=== PATIENT | female | born 1935 | race Caucasian/White ===

== ENCOUNTER 2019-05-23 12:30 | Outpatient (CLI) | payer MEDICARE, OTHER ==
--- NOTE | 2019-05-24 08:21 | XRAY Report ---
Reason: L SHOULDER PAIN AFTER FALL Procedure Date: 05/23/2019 Accession Number: [id number] / [id number] Procedure: XR - Shoulder 3 View LT CPT Code: Final Report FULL RESULT: EXAM: LEFT SHOULDER RADIOGRAPHY, 3 VIEWS EXAM DATE: 05/23/2019 12:44 PM. CLINICAL HISTORY: 83-year-old female with persistent left shoulder pain post ground-level fall 10 days ago. COMPARISON: None. TECHNIQUE: AP, Grashey and Y views. FINDINGS: Bones: Mild to moderate degenerative changes in the proximal humerus, age appropriate. No fracture or bone lesion. Joints: Normal-appearing glenohumeral joint. Moderate to severe narrowing left AC joint. Soft tissues: The visualized hemithorax is unremarkable. No soft tissue swelling. Other: Visualized upper chest unremarkable. IMPRESSION: No acute process or posttraumatic abnormality. Moderate to severe joint space narrowing left AC joint. Glenohumeral joint unremarkable. RADIA
== END 2019-05-23 12:31 | disposition home or self-care (01) ==
LOC: DI 12:30
PROVIDERS: ATTEND Physician Assistant
DX: M19.012 Primary osteoarthritis, left shoulder (principal)

== ENCOUNTER 2020-11-13 08:00 | Outpatient (CLI) | payer MEDICARE, OTHER | END 2020-11-13 23:59 | disposition home or self-care (01) | LOC: LAB.N 08:00 | PROVIDERS: ATTEND Emergency Medicine | DX: Z91.81 History of falling (principal) | CPT/HCPCS: 82962 ==

== ENCOUNTER 2021-11-08 08:00 | Outpatient (CLI) | payer MEDICARE, OTHER ==
[2021-11-08 11:29] LABS: BASOPHILS # (AUTO) 0.1 10^3/uL (0.0-0.1); BASOPHILS % (AUTO) 0.8 %; EOSINOPHILS # (AUTO) 0.1 10^3/uL (0.0-0.7); EOSINOPHILS % (AUTO) 0.7 %; HCT - HEMATOCRIT 40.9 % (37.0-47.0); HGB - HEMOGLOBIN 13.6 g/dL (12.0-16.0); LYMPHOCYTES # (AUTO) 1.4 10^3/uL (1.5-3.5); LYMPHOCYTES % (AUTO) 14.8 %; MEAN CORPUSCULAR HEMOGLOBIN 31.2 pg (27.0-31.0); MEAN CORPUSCULAR HGB CONC 33.3 g/dL (32.0-36.0); MEAN CORPUSCULAR VOLUME 93.8 fL (81.0-99.0); MEAN PLATELET VOLUME 9.1 fL (7.9-10.8); MONOCYTES # (AUTO) 1.2 10^3/uL (0.0-1.0); MONOCYTES % (AUTO) 13.3 %; NEUTROPHILS # (AUTO) 6.4 10^3/uL (1.5-6.6); NEUTROPHILS % (AUTO) 70.1 %; PLT - PLATELET COUNT 258 10^3/uL (130-450); RED BLOOD COUNT 4.36 10^6/uL (4.20-5.40); RED CELL DISTRIBUTION WIDTH 13.2 % (12.0-15.0); WHITE BLOOD COUNT 9.2 x10^3/uL (4.8-10.8)
[2021-11-08 11:45] LABS: ALBUMIN 4.7 g/dL (3.2-5.5); BILIRUBIN,TOTAL 1.5 mg/dL (0.2-1.0); CREATININE 0.6 mg/dL (0.4-1.0); POTASSIUM 4.2 mmol/L (3.5-5.0)
== END 2021-11-08 23:59 | disposition home or self-care (01) ==
LOC: LAB.N 08:00
PROVIDERS: ATTEND Physician Assistant Medical
DX: R53.81 Other malaise (principal); R53.83 Other fatigue
CPT/HCPCS: 36415; 80053; 85025; 87086

== ENCOUNTER 2021-11-25 11:21 | Outpatient (CLI) | payer MEDICARE, OTHER | END 2021-11-25 11:22 | disposition EMS.NT | LOC: EMS 11:21 | DX: R53.1 Weakness (principal) ==

== ENCOUNTER 2022-01-04 08:00 | Outpatient (CLI) | payer MEDICARE, OTHER | END 2022-01-04 23:59 | disposition home or self-care (01) | LOC: LAB.N 08:00 | PROVIDERS: ATTEND Registered Nurse | DX: R82.79 Other abnormal findings on microbiological examination of urine (principal); R31.9 Hematuria, unspecified | CPT/HCPCS: 87086 ==

== ENCOUNTER 2022-01-04 08:00 | Outpatient (CLI) | payer MEDICARE, OTHER ==
--- NOTE | 2022-01-04 10:31 | XRAY Report ---
PROCEDURE: Chest 2 View X-Ray INDICATIONS: SOB TECHNIQUE: 2 view(s) of the chest. COMPARISON: None. FINDINGS: Surgical changes and devices: None. Lungs and pleura: No pleural effusions or pneumothorax. Lungs are clear. Mediastinum: Mediastinal contours are normal. Heart size is normal. Bones and chest wall: No suspicious bony abnormalities. Soft tissues appear unremarkable. IMPRESSION: No acute process. Reviewed by: Ronak Hayward MD on 01/04/2022 10:30 AM PDT Approved by: Ronak Hayward MD on 01/04/2022 10:30 AM PDT Station ID: [id number]
== END 2022-01-04 23:59 | disposition home or self-care (01) ==
LOC: DI.N 08:00
PROVIDERS: ATTEND Registered Nurse
DX: R06.09 Other forms of dyspnea (principal); R53.81 Other malaise; R53.83 Other fatigue; R06.2 Wheezing

== ENCOUNTER 2022-10-12 11:13 | Outpatient (CLI) | payer MEDICARE, OTHER | END 2022-10-12 11:14 | disposition short-term general hospital (02) | LOC: EMS 11:13 | DX: R41.0 Disorientation, unspecified (principal); R46.89 Other symptoms and signs involving appearance and behavior | CPT/HCPCS: A0425; A0429 ==

== ENCOUNTER 2022-11-05 10:07 | Outpatient (CLI) | payer MEDICARE, OTHER | END 2022-11-05 23:59 | disposition critical access hospital (66) | LOC: EMS 10:07 | DX: R53.1 Weakness (principal); R53.81 Other malaise | CPT/HCPCS: A0425; A0429 ==

== ENCOUNTER 2022-11-05 10:27 | Emergency (ER) | payer MEDICARE, OTHER ==
[2022-11-05] MEDS ORDERED: SODIUM CHLORIDE 0.9% 1,000 ML IV STA (11:55)
--- NOTE | 2022-11-05 11:57 | ED Physician Documentation ---
History of Present Illness - Stated complaint Stated Complaint: GENERALIZED WEAKNESS - Chief complaint Chief Complaint: General - History obtained from History obtained from: Patient, Family - History of Present Illness Timing: How many days ago (3) - Additonal information Additional information: 87 y/o female with history of advanced age on no medications complains today of weakness. She feels she is able to get out of bed but feels weak. She is accompanied by her sister today and denies other medical problems or symptoms. She does not recall entirely her visit to [facility] 3 weeks ago. She was confused then and was taken by ambulance to [facility] when both [place] and [place] were without a scanner. She was scanned on that visit. On that visit she had a UTI. Has no symptoms now. She does not have a prior diagnosis of dementia. Today she appears confused. Review of Systems Constitutional: denies: Fever, Chills, Myalgias Eyes: denies: Decreased vision Ears: denies: Ear pain Nose: denies: Rhinorrhea / runny nose, Congestion Throat: denies: Oral lesions / sores, Sore throat Cardiac: denies: Chest pain / pressure, Palpitations Respiratory: denies: Dyspnea, Cough GI: denies: Abdominal Pain, Nausea, Vomiting, Constipation, Diarrhea : reports: Frequency. denies: Dysuria Skin: denies: Rash Musculoskeletal: denies: Neck pain, Back pain, Extremity pain Neurologic: reports: Generalized weakness. denies: Focal weakness, Numbness PD PAST MEDICAL HISTORY - Allergies Allergies/Adverse Reactions: Allergies Allergy/AdvReac Type Severity Reaction Status Date / Time No Known Drug Allergies Allergy Verified 11/05/22 10:33 PD ED PE NORMAL - Vitals Vital signs reviewed: Yes (hypertensive ) - General General: No acute distress, Well developed/nourished, Other (appears confused.) - HEENT HEENT: Atraumatic, PERRL, EOMI - Neck Neck: Supple, no meningeal sign, No bony TTP - Cardiac Cardiac: RRR, No murmur - Respiratory Respiratory: No respiratory distress, Clear bilaterally - Abdomen Abdomen: Normal bowel sounds, Soft, Non tender, Non distended, No organomegaly - Back Back: No CVA TTP, No spinal TTP - Derm Derm: Normal color, Warm and dry, No rash, Other (skin tents easily ) - Extremities Extremities: No deformity, No edema, No calf tenderness / cord - Neuro Neuro: packer sausage and wiener 2-12 intact, No motor deficit, No sensory deficit, Normal speech Eye Opening: Spontaneous Motor: Obeys Commands Verbal: Confused GCS Score: 14 - Psych Psych: Normal mood, Normal affect Results - Vitals Vitals: Vital Signs - 24 hr 11/05/22 11/05/22 11/05/22 10:33 10:36 12:42 Temperature 36.4 C L Heart Rate 70 62 58 L Respiratory 20 20 15 Rate Blood Pressure 184/76 H 149/78 H 155/56 H O2 Saturation 98 98 100 11/05/22 14:23 Temperature Heart Rate 68 Respiratory 15 Rate Blood Pressure 161/78 H O2 Saturation 98 Oxygen O2 Source Room air - Labs Labs: Laboratory Tests 11/05/22 11/05/22 11/05/22 12:07 12:20 12:20 WBC 6.8 RBC 4.23 Hgb 12.8 Hct 38.7 MCV 91.5 MCH 30.3 MCHC 33.1 RDW 13.3 Plt Count 210 MPV 8.8 Neut # (Auto) 4.4 Lymph # (Auto) 1.3 L [place] # (Auto) 0.9 Eos # (Auto) 0.1 Baso # (Auto) 0.1 Absolute Nucleated RBC 0.00 Nucleated RBC % 0.0 Sodium 138 Potassium 3.8 Chloride 105 Carbon Dioxide 26 Anion Gap 7.0 BUN 16 Creatinine 0.7 Estimated GFR (MDRD) 79 L Glucose 106 H Calcium 9.0 Total Bilirubin 1.9 H AST 17 ALT 13 Alkaline Phosphatase 69 Total Protein 6.8 Albumin 3.9 Globulin 2.9 Albumin/Globulin Ratio 1.3 Lipase 27 Urine Color LIGHT YELLOW Urine Clarity CLEAR Urine pH 7.5 Ur Specific [place] 1.015 Urine Protein NEGATIVE Urine Glucose (UA) NEGATIVE Urine Ketones NEGATIVE Urine Occult Blood NEGATIVE Urine Nitrite NEGATIVE Urine Bilirubin NEGATIVE Urine Urobilinogen 0.2 (NORMAL) Ur Leukocyte Esterase NEGATIVE Ur Microscopic Review NOT INDICATED Urine Culture Comments NOT INDICATED Procedures - IVC sono (time) 1150 Bedside IVC sono: IVC measures (cm) (1.12), IVC collapsed c insp (cm) (complete), Dehydration (est 1 liter deficit) PD Medical Decision Making - ED course Complexity details: reviewed old records, reviewed results, re-evaluated patient, considered differential, d/w patient, d/w family Reviewed Lab Results: We evaluated a complete blood count showing a normal white blood cell count normal hemoglobin hematocrit and platelets chemistries showed normal electrolytes normal kidney and liver function bilirubin elevated at 1.9 was the only abnormality her prior from more than a year ago was elevated at 1.5. Urinalysis is entirely unremarkable.My interpretation of these benign appearing results are likely the patient has a benign condition. ED course: 87-year-old Raffi Sainz has presented to the emergency department today she appears a bit confused and she is complaining of generalized weakness. Laboratory and ancillary examination has few findings and with POCUS we were able to demonstrate a volume deficit. This correlated with the patient's skin tenting and parched mucous membranes. She was administered a liter of saline. She does appear to have advancing dementia and she is living alone I have asked social work to evaluate the patient. Departure - Departure Disposition: 01 Home, Self Care Clinical Impression: Dehydration Condition: Stable Instructions: ED Dehydration Follow-Up: Palomo Muhammad MD [Provider Admit Priv/Credential] - Comments: Aminata, today we did not find any abnormalities on her general work-up with the exception of some mild dehydration. We have given you fluids to replace the lost volume. The expectation is that with continued hydration you would feel normal. Discharge Date/Time: 11/05/22 14:23
[2022-11-05 12:29] LABS: BASOPHILS # (AUTO) 0.1 10^3/uL (0.0-0.1); EOSINOPHILS # (AUTO) 0.1 10^3/uL (0.0-0.7); EOSINOPHILS % (AUTO) 0.9 %; HCT - HEMATOCRIT 38.7 % (37.0-47.0); HGB - HEMOGLOBIN 12.8 g/dL (12.0-16.0); LYMPHOCYTES # (AUTO) 1.3 10^3/uL (1.5-3.5); LYMPHOCYTES % (AUTO) 19.6 %; MEAN CORPUSCULAR HEMOGLOBIN 30.3 pg (27.0-31.0); MEAN CORPUSCULAR HGB CONC 33.1 g/dL (32.0-36.0); MEAN CORPUSCULAR VOLUME 91.5 fL (81.0-99.0); MEAN PLATELET VOLUME 8.8 fL (7.9-10.8); MONOCYTES # (AUTO) 0.9 10^3/uL (0.0-1.0); MONOCYTES % (AUTO) 13.7 %; NEUTROPHILS # (AUTO) 4.4 10^3/uL (1.5-6.6); NEUTROPHILS % (AUTO) 64.7 %; PLT - PLATELET COUNT 210 10^3/uL (130-450); RED BLOOD COUNT 4.23 10^6/uL (4.20-5.40); RED CELL DISTRIBUTION WIDTH 13.3 % (12.0-15.0); WHITE BLOOD COUNT 6.8 x10^3/uL (4.8-10.8)
[2022-11-05 12:34] LABS: BILIRUBIN,URINE NEGATIVE (NEGATIVE); GLUCOSE, URINE (UA) NEGATIVE (NEGATIVE); KETONES,URINE (UA) NEGATIVE (NEGATIVE); LEUKOCYTE ESTERASE, URINE NEGATIVE (NEGATIVE); NITRITE,URINE NEGATIVE (NEGATIVE); OCCULT BLOOD,URINE NEGATIVE (NEGATIVE); PH,URINE 7.5 PH (5.0-7.5); PROTEIN,URINE NEGATIVE (NEGATIVE); UROBILINOGEN,URINE 0.2 (NORMAL) E.U./dL (NORMAL)
[2022-11-05 12:36] LABS: CLARITY,URINE CLEAR (CLEAR)
[2022-11-05 12:43] LABS: ALBUMIN 3.9 g/dL (3.2-5.5); ALBUMIN/GLOBULIN RATIO 1.3 (1.0-2.2); BILIRUBIN,TOTAL 1.9 mg/dL (0.2-1.0); CREATININE 0.7 mg/dL (0.4-1.0); POTASSIUM 3.8 mmol/L (3.5-5.0); TOTAL PROTEIN 6.8 g/dL (6.7-8.2)
[2022-11-05 14:26] VITALS: BP 161/78
== END 2022-11-05 14:23 | disposition home or self-care (01) ==
LOC: ED 10:27
DX: E86.0 Dehydration (principal)
CPT/HCPCS: 36415; 80053; 81001; 81003; 83690; 85025; 87086; 96360; 99283

== ENCOUNTER 2022-11-23 09:15 | Emergency (ER) | payer MEDICARE, OTHER ==
[2022-11-23] MEDS ORDERED: ONDANSETRON 4 MG/2 ML VIAL IVP STA (09:55)
[2022-11-23 10:07] LABS: BASOPHILS # (AUTO) 0.1 10^3/uL (0.0-0.1); BASOPHILS % (AUTO) 1.1 %; EOSINOPHILS # (AUTO) 0.1 10^3/uL (0.0-0.7); EOSINOPHILS % (AUTO) 0.9 %; HCT - HEMATOCRIT 38.2 % (37.0-47.0); HGB - HEMOGLOBIN 12.9 g/dL (12.0-16.0); LYMPHOCYTES % (AUTO) 12.4 %; MEAN CORPUSCULAR HEMOGLOBIN 30.9 pg (27.0-31.0); MEAN CORPUSCULAR HGB CONC 33.8 g/dL (32.0-36.0); MEAN CORPUSCULAR VOLUME 91.6 fL (81.0-99.0); MEAN PLATELET VOLUME 9.2 fL (7.9-10.8); MONOCYTES % (AUTO) 12.1 %; NEUTROPHILS # (AUTO) 5.8 10^3/uL (1.5-6.6); NEUTROPHILS % (AUTO) 73.4 %; PLT - PLATELET COUNT 233 10^3/uL (130-450); RED BLOOD COUNT 4.17 10^6/uL (4.20-5.40); RED CELL DISTRIBUTION WIDTH 13.6 % (12.0-15.0); WHITE BLOOD COUNT 7.8 x10^3/uL (4.8-10.8)
--- NOTE | 2022-11-23 10:13 | ED Physician Documentation ---
History of Present Illness - Stated complaint Stated Complaint: GEN WEAKNESS - Chief complaint Chief Complaint: General - History obtained from History obtained from: Patient - Additonal information Additional information: 87-year-old female with no reported past medical history presents by private vehicle for "I just do not feel good". Patient denying any specific symptoms at this time. On review of systems patient was asked if she had nausea or vomiting and she stated she "might have the beginning of nausea". Denies pain. Review of Systems Constitutional: reports: Other (malaise). denies: Fever, Chills Ears: denies: Loss of hearing Nose: denies: Rhinorrhea / runny nose, Foreign Body Cardiac: denies: Chest pain / pressure, Palpitations, Calf pain GI: reports: Nausea. denies: Abdominal Pain, Abdominal Swelling, Vomiting, Constipation, Diarrhea : denies: Dysuria, Frequency, Hesitancy Musculoskeletal: denies: Neck pain, Back pain Neurologic: denies: Generalized weakness, Focal weakness, Numbness, Near syncope, Syncope, Confused PD PAST MEDICAL HISTORY - Past Medical History Past Medical History: No - Past Surgical History Past Surgical History: Yes General: Appendectomy - Present Medications Home Medications: Ambulatory Orders Medication Instructions Recorded Confirmed No Known Home Medications 11/23/22 11/23/22 - Allergies Allergies/Adverse Reactions: Allergies Allergy/AdvReac Type Severity Reaction Status Date / Time No Known Drug Allergies Allergy Verified 11/23/22 09:47 - Social History Does the pt smoke?: No Smoking Status: Never smoker PD ED PE NORMAL - Vitals Vital signs reviewed: Yes - General General: Alert and oriented X 3, No acute distress, Well developed/nourished, Other (appears stated age) - HEENT HEENT: Atraumatic - Cardiac Cardiac: RRR, Strong equal pulses - Respiratory Respiratory: No respiratory distress, Clear bilaterally - Abdomen Abdomen: Soft, Non tender, Non distended - Derm Derm: Normal color, Warm and dry, No rash - Extremities Extremities: No deformity, No tenderness to palpate, Normal ROM s pain, No edema, No calf tenderness / cord, Other (gait normal) - Neuro Neuro: Alert and oriented X 3, pie maker 2-12 intact, No motor deficit, Normal speech Results - Vitals Vitals: Vital Signs - 24 hr 07/26/23 07/26/23 07/26/23 09:41 10:03 12:00 Temperature 36.7 C Heart Rate 88 70 76 Respiratory 14 25 H 17 Rate Blood Pressure 112/69 118/67 129/73 O2 Saturation 97 97 100 Oxygen O2 Source Room air - EKG (time done) 0956 EKG releavant findings:: EKG personally interpreted by author of this note. Relevant findings are: Rate: Rate (enter#) (73) Rhythm: NSR [place]: Normal Intervals: Normal RI QRS: Normal Ischemia: Normal ST segments - Labs Labs: Laboratory Tests 11/23/22 11/23/22 11/23/22 10:00 10:00 10:15 WBC 7.8 RBC 4.17 L Hgb 12.9 Hct 38.2 MCV 91.6 MCH 30.9 MCHC 33.8 RDW 13.6 Plt Count 233 MPV 9.2 Neut # (Auto) 5.8 Lymph # (Auto) 1.0 L [place] # (Auto) 1.0 Eos # (Auto) 0.1 Baso # (Auto) 0.1 Absolute Nucleated RBC 0.00 Nucleated RBC % 0.0 Sodium 136 Potassium 4.0 Chloride 104 Carbon Dioxide 28 Anion Gap 4.0 L BUN 17 Creatinine 0.7 Estimated GFR (MDRD) 79 L Glucose 106 H Calcium 9.6 Total Bilirubin 1.5 H AST 12 ALT 10 Alkaline Phosphatase 63 Total Protein 6.1 L Albumin 4.1 Globulin 2.0 L Albumin/Globulin Ratio 2.1 Lipase 20 Urine Color Urine Clarity Urine pH Ur Specific [place] Urine Protein Urine Glucose (UA) Urine Ketones Urine Occult Blood Urine Nitrite Urine Bilirubin Urine Urobilinogen Ur Leukocyte Esterase Urine RBC Urine WBC Ur Squamous Epith Cells Urine Bacteria Ur Microscopic Review Urine Culture Comments Nasal Adenovirus (PCR) NOT DETECTED Nasal B. parapertussis DNA (PCR) NOT DETECTED Nasal Coronavir 229E PCR NOT DETECTED Nasal Coronavir HKU1 PCR NOT DETECTED Nasal Coronavir NL63 PCR NOT DETECTED Nasal Coronavir OC43 PCR NOT DETECTED Nasal Enterovir/Rhinovir PCR NOT DETECTED Nasal Influenza B PCR NOT DETECTED Nasal Influenza A PCR NOT DETECTED Nasal Parainfluen 1 PCR NOT DETECTED Nasal Parainfluen 2 PCR NOT DETECTED Nasal Parainfluen 3 PCR NOT DETECTED Nasal Parainfluen 4 PCR NOT DETECTED Nasal RSV (PCR) NOT DETECTED Nasal B.pertussis DNA PCR NOT DETECTED Nasal C.pneumoniae (PCR) NOT DETECTED Kevin Human Metapneumo PCR NOT DETECTED Nasal M.pneumoniae (PCR) NOT DETECTED Nasal SARS-CoV-2 (PCR) NOT DETECTED 11/23/22 11:00 WBC RBC Hgb Hct MCV MCH MCHC RDW Plt Count MPV Neut # (Auto) Lymph # (Auto) [place] # (Auto) Eos # (Auto) Baso # (Auto) Absolute Nucleated RBC Nucleated RBC % Sodium Potassium Chloride Carbon Dioxide Anion Gap BUN Creatinine Estimated GFR (MDRD) Glucose Calcium Total Bilirubin AST ALT Alkaline Phosphatase Total Protein Albumin Globulin Albumin/Globulin Ratio Lipase Urine Color YELLOW Urine Clarity CLEAR Urine pH 5.5 Ur Specific [place] 1.025 Urine Protein NEGATIVE Urine Glucose (UA) NEGATIVE Urine Ketones NEGATIVE Urine Occult Blood TRACE-INTA Urine Nitrite NEGATIVE Urine Bilirubin NEGATIVE Urine Urobilinogen 1 (NORMAL) Ur Leukocyte Esterase TRACE H Urine RBC None Seen Urine WBC 4-5 Ur Squamous Epith Cells FEW Squamous Urine Bacteria Few Ur Microscopic Review INDICATED Urine Culture Comments INDICATED Nasal Adenovirus (PCR) Nasal B. parapertussis DNA (PCR) Nasal Coronavir 229E PCR Nasal Coronavir HKU1 PCR Nasal Coronavir NL63 PCR Nasal Coronavir OC43 PCR Nasal Enterovir/Rhinovir PCR Nasal Influenza B PCR Nasal Influenza A PCR Nasal Parainfluen 1 PCR Nasal Parainfluen 2 PCR Nasal Parainfluen 3 PCR Nasal Parainfluen 4 PCR Nasal RSV (PCR) Nasal B.pertussis DNA PCR Nasal C.pneumoniae (PCR) Kevin Human Metapneumo PCR Nasal M.pneumoniae (PCR) Nasal SARS-CoV-2 (PCR) PD Medical Decision Making - ED course Complexity details: reviewed results ED course: Patient presenting for general unwell feeling without specific complaint. Physical exam is unremarkable. Patient AOx3 and ambulatory to exam room. Labs/imaging unremarkable. Question very mild UTI. Patient informed of all lab results, she states that she feels well and wants to go home. She was informed of her urinalysis, she states that she does not want to be on antibiotics at this time and will wait to see if her urine culture shows anything before she starts antibiotics. EKG sinus rhythm, respiratory panel negative. Patient counseled to return in 48 hours if she does not notice improvement or if her symptoms have changed. Departure - Departure Disposition: 01 Home, Self Care Clinical Impression: Malaise Condition: Stable Instructions: ED Viral Syndrome Forms: PCP List Discharge Date/Time: 11/23/22 13:02
--- NOTE | 2022-11-23 10:21 | XRAY Report ---
PROCEDURE: Chest 1 View X-Ray INDICATIONS: gen weakness TECHNIQUE: One view of the chest was acquired. COMPARISON: Chest x-ray, 01/04/2010 22. FINDINGS: Surgical changes and devices: None. Lungs and pleura: Hyperinflation consistent with COPD. No pleural effusions or pneumothorax. Lungs are clear. Mediastinum: Mediastinal contours appear normal. Heart size is normal. Bones and chest wall: No suspicious bony lesions. Overlying soft tissues appear unremarkable. IMPRESSION: 1. No acute cardiopulmonary process. 2. COPD. Reviewed by: Galilea Estrada MD on 11/23/2022 10:19 AM PDT Approved by: Galilea Estrada MD on 11/23/2022 10:19 AM PDT Station ID: [id number]
[2022-11-23 10:31] LABS: ALBUMIN 4.1 g/dL (3.2-5.5); ALBUMIN/GLOBULIN RATIO 2.1 (1.0-2.2); BILIRUBIN,TOTAL 1.5 mg/dL (0.2-1.0); CALCIUM 9.6 mg/dL (8.5-10.3); CREATININE 0.7 mg/dL (0.6-1.3); TOTAL PROTEIN 6.1 g/dL (6.4-8.9)
[2022-11-23 11:11] LABS: BILIRUBIN,URINE NEGATIVE (NEGATIVE); GLUCOSE, URINE (UA) NEGATIVE (NEGATIVE); KETONES,URINE (UA) NEGATIVE (NEGATIVE); LEUKOCYTE ESTERASE, URINE TRACE (NEGATIVE); NITRITE,URINE NEGATIVE (NEGATIVE); OCCULT BLOOD,URINE TRACE-INTA (NEGATIVE); PH,URINE 5.5 PH (5.0-7.5); PROTEIN,URINE NEGATIVE (NEGATIVE); UROBILINOGEN,URINE 1 (NORMAL) E.U./dL (NORMAL)
[2022-11-23 11:12] LABS: CLARITY,URINE CLEAR (CLEAR)
[2022-11-23 11:20] LABS: BACTERIA,URINE Few /HPF (None Seen); RBC,URINE None Seen /HPF (0-5); SQUAMOUS EPITHELIAL CELL,UR FEW Squamous (<= Few)
[2022-11-23 11:23] LABS: B. PARAPERTUSSIS- RESP PCR PAN NOT DETECTED; B. PERTUSSIS- RESP PCR PANEL NOT DETECTED; C. PNEUMONIAE- RESP PCR PANEL NOT DETECTED; CORONAVIRUS 229E-RESP PCR NOT DETECTED; CORONAVIRUS HKU1-RESP PCR NOT DETECTED; CORONAVIRUS NL63-RESP PCR NOT DETECTED; CORONAVIRUS OC43-RESP PCR NOT DETECTED; HUMAN METAPNEUMOVIRUS NOT DETECTED; INFLUENZA A- RESP PCR PANEL NOT DETECTED; INFLUENZA B - RESP PCR PANEL NOT DETECTED; M. PNEUMONIAE- RESP PCR PANEL NOT DETECTED; PARAINFLUENZA VIRUS 1 NOT DETECTED; PARAINFLUENZA VIRUS 2 NOT DETECTED; PARAINFLUENZA VIRUS 3 NOT DETECTED; PARAINFLUENZA VIRUS 4 NOT DETECTED; RHINOVIRUS/ENTEROVIRUS NOT DETECTED; RSV- RESP PCR PANEL NOT DETECTED; SARS-CoV-2 -RESP PCR PANEL NOT DETECTED
[2022-11-23 12:21] VITALS: BP 129/73
== END 2022-11-23 13:02 | disposition home or self-care (01) ==
LOC: ED 09:15
DX: R53.81 Other malaise (principal); Z20.822 Contact with and (suspected) exposure to COVID-19
CPT/HCPCS: 36415; 80053; 81001; 81003; 83690; 85025; 87086; 87633; 93005; 96374; 99283

== ENCOUNTER 2022-11-29 07:15 | Emergency (ER) | payer MEDICARE, OTHER ==
[2022-11-29] MEDS ORDERED: SODIUM CHLORIDE 0.9% 1,000 ML IV STA (07:56)
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
[2022-11-29 08:10] LABS: BASOPHILS # (AUTO) 0.1 10^3/uL (0.0-0.1); BASOPHILS % (AUTO) 1.1 %; EOSINOPHILS # (AUTO) 0.1 10^3/uL (0.0-0.7); EOSINOPHILS % (AUTO) 1.3 %; HCT - HEMATOCRIT 39.1 % (37.0-47.0); HGB - HEMOGLOBIN 13.1 g/dL (12.0-16.0); LYMPHOCYTES % (AUTO) 16.3 %; MEAN CORPUSCULAR HEMOGLOBIN 30.5 pg (27.0-31.0); MEAN CORPUSCULAR HGB CONC 33.5 g/dL (32.0-36.0); MEAN CORPUSCULAR VOLUME 91.1 fL (81.0-99.0); MEAN PLATELET VOLUME 8.7 fL (7.9-10.8); MONOCYTES # (AUTO) 0.8 10^3/uL (0.0-1.0); NEUTROPHILS # (AUTO) 4.3 10^3/uL (1.5-6.6); NEUTROPHILS % (AUTO) 68.1 %; PLT - PLATELET COUNT 213 10^3/uL (130-450); RED BLOOD COUNT 4.29 10^6/uL (4.20-5.40); RED CELL DISTRIBUTION WIDTH 13.5 % (12.0-15.0); WHITE BLOOD COUNT 6.3 x10^3/uL (4.8-10.8)
[2022-11-29 08:21] LABS: ALBUMIN 4.1 g/dL (3.2-5.5); ALBUMIN/GLOBULIN RATIO 1.9 (1.0-2.2); BILIRUBIN,TOTAL 1.4 mg/dL (0.2-1.0); CALCIUM 9.4 mg/dL (8.5-10.3); CREATININE 0.7 mg/dL (0.6-1.3); TOTAL PROTEIN 6.3 g/dL (6.4-8.9)
--- NOTE | 2022-11-29 09:29 | CT Report ---
PROCEDURE: HEAD WO INDICATIONS: confusion TECHNIQUE: Noncontrast 4.5 mm thick angled axial sections acquired from the foramen magnum to the vertex. For r adiation dose reduction, the following was used: automated exposure control, adjustment of mA and/or kV according to patient size. COMPARISON: None FINDINGS: Image quality: Excellent. CSF spaces: Basal cisterns are patent. No extra-axial fluid collections. The ventricles are symmet mynor in size and shape. Brain: No intracranial bleeds or masses. There is cerebral volume loss for age, with resultant vent ricular and sulcal prominence. There are periventricular and deep white matter chronic small vessel ischemic changes. There is intracranial internal carotid artery atherosclerosis. Skull and face: Calvarium and visualized facial bones appear intact, without suspicious lesions. Sinuses: Visualized sinuses and mastoids are clear. IMPRESSION: 1. No CT evidence of acute intracranial abnormalities. 2. Significant volume loss related to patient's age. Moderate white matter chronic small vessel ische wilson changes. Reviewed by: Wally Flannery MD on 11/29/2022 9:28 AM PDT Approved by: Wally Flannery MD on 11/29/2022 9:28 AM PDT Station ID: [id number]
[2022-11-29 09:48] LABS: BILIRUBIN,URINE NEGATIVE (NEGATIVE); GLUCOSE, URINE (UA) NEGATIVE (NEGATIVE); KETONES,URINE (UA) NEGATIVE (NEGATIVE); LEUKOCYTE ESTERASE, URINE NEGATIVE (NEGATIVE); NITRITE,URINE NEGATIVE (NEGATIVE); OCCULT BLOOD,URINE TRACE-LYSE (NEGATIVE); PROTEIN,URINE NEGATIVE (NEGATIVE); UROBILINOGEN,URINE 0.2 (NORMAL) E.U./dL (NORMAL)
[2022-11-29 09:50] LABS: CLARITY,URINE CLEAR (CLEAR)
[2022-11-29 12:20] VITALS: BP 157/65
== END 2022-11-29 14:03 | disposition home or self-care (01) ==
LOC: ED 07:15
DX: E86.0 Dehydration (principal); F03.A18 Unspecified dementia, mild, with other behavioral disturbance
CPT/HCPCS: 36415; 80053; 81001; 81003; 83690; 85025; 87086; 96360; 96361; 99284

== ENCOUNTER 2023-05-14 07:44 | Emergency (ER) | payer MEDICARE, OTHER ==
--- NOTE | 2023-05-14 07:52 | ED Physician Documentation ---
PD HPI Fall - Stated complaint Stated Complaint: GLF/ HEAD LAC - History obtained from History obtained from: Patient, EMS - History of Present Illness Mechanism of injury: Unknown Fall distance: Standing position Where injury occurred: Home Timing - onset: Today Injury(ies) location: Head, Neck Quality of pain: Pain Associated symptoms: LOC, AMS Symptoms improve with: Rest Worsens with: Movement, Palpation Contributing factors: No: Anticoagulated, Intoxicated Similar symptoms before: Has not had sx before Recently seen: Not recently seen - Additional information Additional information: Raffi Sainz is an 87-year-old female with dementia who is a resident of [facility]. Today she was near the nurses station and had an unwitnessed fall they did hear the fall they found the patient on the ground with her eyes rolled back and she was not responsive. She is now responsive and reports slight nausea. She does have some pain to the back of her head with a laceration and she denies any pain to her neck until her neck is palpated.The patient denies any other specific symptoms on review of systems but she is unaware of her location. Review of Systems Unable to obtain: Dementia PD PAST MEDICAL HISTORY - Past Surgical History Past Surgical History: Yes General: Appendectomy - Present Medications Home Medications: Ambulatory Orders Medication Instructions Recorded Confirmed Amox/Clav 875/125 [Augmentin] 1 each PO Q12H #20 tablet 05/14/23 - Allergies Allergies/Adverse Reactions: Allergies Allergy/AdvReac Type Severity Reaction Status Date / Time No Known Drug Allergies Allergy Verified 05/14/23 08:00 - Social History Does the pt smoke?: No Smoking Status: Never smoker PD ED PE NORMAL - Vitals Vital signs reviewed: Yes - General General: No acute distress, Well developed/nourished, Other (87 y/o female interactive and with minimal delay in exection of motor commands and no significant speech latency. wearing collar with head bandaged pleasant smile. ) - HEENT HEENT: PERRL, EOMI - Neck Neck: Supple, no meningeal sign, Other (midline diana tenderness to mid cervical spine. ) - Cardiac Cardiac: RRR, No murmur - Respiratory Respiratory: No respiratory distress, Clear bilaterally - Abdomen Abdomen: Normal bowel sounds, Soft, Non tender, Non distended, No organomegaly - Back Back: No CVA TTP, No spinal TTP - Derm Derm: Normal color, Warm and dry, No rash - Extremities Extremities: No deformity, No edema - Neuro Neuro: string studies director 2-12 intact, No motor deficit, No sensory deficit, Normal speech Eye Opening: Spontaneous Motor: Obeys Commands Verbal: Confused GCS Score: 14 - Psych Psych: Normal mood, Normal affect Results - Vitals Vitals: Vital Signs - 24 hr 05/14/23 05/14/23 05/14/23 07:53 08:25 09:33 Temperature 36.0 C L Heart Rate 63 61 61 Respiratory 20 16 16 Rate Blood Pressure 148/71 H 132/69 H 147/73 H O2 Saturation 97 98 100 Oxygen O2 Source Room air - Labs Labs: Laboratory Tests 05/14/23 09:17 Urine Color YELLOW Urine Clarity SL. CLOUDY Urine pH 7.5 Ur Specific [place] 1.015 Urine Protein NEGATIVE Urine Glucose (UA) NEGATIVE Urine Ketones NEGATIVE Urine Occult Blood NEGATIVE Urine Nitrite POSITIVE H Urine Bilirubin NEGATIVE Urine Urobilinogen 0.2 (NORMAL) Ur Leukocyte Esterase SMALL H Urine RBC 0-5 Urine WBC 6-10 H Ur Squamous Epith Cells FEW Squamous Urine Bacteria Many H Ur Microscopic Review INDICATED Urine Culture Comments INDICATED - Rads (name of study) CT head Relevant Findings:: Prelim report reviewed (Impression: No acute intracranial pathology. Small left posterior calvarial scalp contusion, without underlying fracture. Right maxillary sinusitis.), EMP independent interpretation of test, See rad report CT cervical spine Relevant Findings:: Prelim report reviewed (Impression: No acute, displaced fracture or traumatic subluxation. Right maxillary sinusitis.), EMP independent interpretation of test, See rad report Procedures - Laceration (location) scalp Length in cm: 3 Wound type: Stellate, Irregular, Into subcut fat, Clean Neurovascular status: Sensory intact, Motor intact, Vascular intact Anesthesia: Lidocaine 1% Wound preparation: Hibiclens, Irrigated copiously NS, Wound explored, To the base Skin layer closure: Marc (#3) Other: Patient tolerated well, No complications, Neurovascular intact, Tetanus UTD PD Medical Decision Making - ED course Complexity details: reviewed old records, reviewed results, re-evaluated patient, considered differential, d/w patient, d/w family ED course: 87-year-old female with a ground-level fall onto the back of her head has a occipital scalp laceration. She has advanced dementia but appears otherwise well. She is not able to provide specific details for review of systems and on her workup we note infection in both the maxillary sinus on the right side as well as urinary tract. We will provide a course of Augmentin for the patient. Departure - Departure Disposition: 01 Home, Self Care Clinical Impression: Occipital scalp laceration Qualifiers: Encounter type: initial encounter Qualified Code(s): S01.01XA - Laceration without foreign body of scalp, initial encounter Maxillary sinusitis, acute Qualifiers: Recurrence: not specified as recurrent Qualified Code(s): J01.00 - Acute maxillary sinusitis, unspecified Urinary tract infection Qualifiers: Urinary tract infection type: acute cystitis Hematuria presence: without hematuria Qualified Code(s): N30.00 - Acute cystitis without hematuria Instructions: ED Laceration Scalp Stitch Or Stap, ED Sinusitis Abx Tx, ED UTI Cystitis Female Follow-Up: Palomo Muhammad MD [Provider Admit Priv/Credential] - Prescriptions: Amox/Clav 875/125 [Augmentin] 1 each PO Q12H #20 tablet Comments: Aminata, today it looks like your fall caused a laceration to your scalp and we have stapled this. We did not find evidence of bleeding inside the skull or evidence of a fracture to the spine. We did find evidence of urinary tract infection and of sinusitis in the right maxillary sinus. These are both conditions which can cause you to be off of your ground game and can cause a fall. For this reason we are treating these infections. I have E scribed some Augmentin to the
--- NOTE | 2023-05-14 08:47 | CT Report ---
PROCEDURE: Cervical Spine WO INDICATIONS: fall scalp lac neck pain nausea TECHNIQUE: Noncontrast 3 mm thick sections acquired from the skull base to the T4 level. Sagittal and coronal r eformats were then constructed. For radiation dose reduction, the following was used: automated exp osure control, adjustment of mA and/or kV according to patient size. COMPARISON: None. FINDINGS: Image quality: Excellent. Bones: No fractures or dislocations. Visualized superior ribs are intact. Soft tissues: Prevertebral soft tissues are normal in thickness. No paravertebral hematomas. No ap ical pneumothoraces. Thyroid is enlarged. Air-fluid level in the right maxillary sinus. IMPRESSION: No acute, displaced fracture or traumatic subluxation. Right maxillary sinusitis. Reviewed by: Cristiano Regan MD on 05/14/2023 8:46 AM PST Approved by: Cristiano Regan MD on 05/14/2023 8:46 AM [facility] Station ID: [id number]
--- NOTE | 2023-05-14 08:48 | CT Report ---
PROCEDURE: Head WO INDICATIONS: fall scalp lac neck pain nausea TECHNIQUE: Noncontrast 4.5 mm thick angled axial sections acquired from the foramen magnum to the vertex. For r adiation dose reduction, the following was used: automated exposure control, adjustment of mA and/or kV according to patient size. COMPARISON: None. FINDINGS: Image quality: Excellent. CSF spaces: Basal cisterns are patent. No extra-axial fluid collections. Ventricles are normal in size and shape. Brain: No midline shift. No intracranial masses or hemorrhage. Saenz-white matter interface is norm al. Skull and face: Calvarium and visualized facial bones are intact, without suspicious lesions. Small left posterior calvarium scalp contusion. Sinuses: Air-fluid level within the right maxillary sinus. IMPRESSION: No acute intracranial pathology. Small left posterior calvarium scalp contusion, without underlying fracture. Right maxillary sinusitis. Reviewed by: Cristiano Regan MD on 05/14/2023 8:47 AM PST Approved by: Cristiano Regan MD on 05/14/2023 8:47 AM [facility] Station ID: [id number]
[2023-05-14] MEDS ORDERED: LIDOCAINE 1% 2 ML VIAL SUBQ STA (09:01)
[2023-05-14 09:23] LABS: BILIRUBIN,URINE NEGATIVE (NEGATIVE); GLUCOSE, URINE (UA) NEGATIVE (NEGATIVE); KETONES,URINE (UA) NEGATIVE (NEGATIVE); LEUKOCYTE ESTERASE, URINE SMALL (NEGATIVE); NITRITE,URINE POSITIVE (NEGATIVE); OCCULT BLOOD,URINE NEGATIVE (NEGATIVE); PH,URINE 7.5 PH (5.0-7.5); PROTEIN,URINE NEGATIVE (NEGATIVE); UROBILINOGEN,URINE 0.2 (NORMAL) E.U./dL (NORMAL)
[2023-05-14 09:25] LABS: CLARITY,URINE SL. CLOUDY (CLEAR)
[2023-05-14 09:44] LABS: BACTERIA,URINE Many /HPF (None Seen); RBC,URINE 0-5 /HPF (0-5); SQUAMOUS EPITHELIAL CELL,UR FEW Squamous (<= Few)
[2023-05-14 10:54] VITALS: BP 161/74; O2SAT 98
== END 2023-05-14 10:51 | disposition home or self-care (01) ==
LOC: EDUNIT# → ED 07:44
DX: S01.01XA Laceration without foreign body of scalp, initial encounter (principal); W18.30XA Fall on same level, unspecified, initial encounter; Y92.198 Other place in other specified residential institution as the place of occurrence of the external cause; J01.00 Acute maxillary sinusitis, unspecified; N30.00 Acute cystitis without hematuria
CPT/HCPCS: 12002; 81001; 81003; 87086; 87181; 99283; 99284

== ENCOUNTER 2023-06-25 13:12 | Outpatient (CLI) | payer MEDICARE, OTHER | END 2023-06-25 23:59 | disposition short-term general hospital (02) | LOC: EMS 13:12 | DX: M25.551 Pain in right hip (principal); M79.651 Pain in right thigh; W01.0XXA Fall on same level from slipping, tripping and stumbling without subsequent striking against object, initial encounter; Y92.098 Other place in other non-institutional residence as the place of occurrence of the external cause | CPT/HCPCS: A0425; A0429 ==

== ENCOUNTER 2023-08-10 17:27 | Outpatient (CLI) | payer MEDICARE, OTHER | END 2023-08-10 23:59 | disposition critical access hospital (66) | LOC: EMS 17:27 | DX: M25.551 Pain in right hip (principal); Z74.01 Bed confinement status; F03.90 Unspecified dementia, unspecified severity, without behavioral disturbance, psychotic disturbance, mood disturbance, and anxiety | CPT/HCPCS: A0425; A0429 ==

== ENCOUNTER 2023-08-10 17:36 | Emergency (ER) | payer MEDICARE, OTHER ==
--- NOTE | 2023-08-10 17:48 | ED Physician Documentation ---
History of Present Illness - Stated complaint Stated Complaint: RT HIP/KNEE PX - Chief complaint Chief Complaint: Ext Problem - History obtained from History obtained from: Patient - Additonal information Additional information: 87-year-old woman with dementia presents for hip and knee injuries after a fall. History is limited by dementia. She said she just tripped and fell. She is confident she did not hit her head. Initially she says she has no complaints, of note she was transported to [facility] in late June for hip injury. She has an incision over the right lateral hip which look like a hip replacement or hip surgery, but she does not recall any surgery. PD PAST MEDICAL HISTORY - Past Medical History Past Medical History: Yes Neuro: Dementia - Past Surgical History Past Surgical History: Yes General: Appendectomy Ortho: Hip replacement - Present Medications Home Medications: Ambulatory Orders Medication Instructions Recorded Confirmed Amox/Clav 875/125 [Augmentin] 1 each PO Q12H #20 tablet 05/14/23 - Allergies Allergies/Adverse Reactions: Allergies Allergy/AdvReac Type Severity Reaction Status Date / Time Penicillins Allergy Unknown Verified 08/10/23 17:45 - Social History Does the pt smoke?: No Smoking Status: Never smoker Does the pt drink ETOH?: No Does the pt have substance abuse?: No - Immunizations Immunizations are current?: Yes - POLST Patient has POLST: Yes PD ED PE NORMAL - Vitals Vital signs reviewed: Yes - General General: No acute distress, Well developed/nourished - HEENT HEENT: PERRL, EOMI - Neck Neck: Supple, no meningeal sign, No bony TTP, No JVD - Extremities Extremities: Other (Incisions over the right hip, looking like a hip surgery. She is tender over both sides of the right knee without deformity. She has pain with internal and external rotation of the right hip.) - Neuro Eye Opening: Spontaneous Motor: Obeys Commands Verbal: Confused (She is alert and oriented to person and place but not time or events.) GCS Score: 14 Results - Vitals Vitals: Vital Signs - 24 hr 08/10/23 17:40 Temperature 37.3 C Heart Rate 110 H Respiratory 15 Rate Blood Pressure 117/67 O2 Saturation 94 Oxygen O2 Source Room air - Rads (name of study) XR R knee and hip Relevant Findings:: Final report received, EMP independent interpretation of test PD Medical Decision Making - ED course ED course: 87-year-old woman after a fall today. She broke her hip a little over a month ago with hardware in place. Imaging of the hip and knee were negative. I called the sister who is the first contact. She is not sure if the patient has been ambulatory yet. At this point though the patient can return to [facility] for continued PT and return for new or worsening symptoms. Departure - Departure Disposition: 01 Home, Self Care Clinical Impression: Knee injury Qualifiers: Encounter type: initial encounter Laterality: right Qualified Code(s): S89.91XA - Unspecified injury of right lower leg, initial encounter Hip injury Qualifiers: Encounter type: initial encounter Laterality: right Qualified Code(s): S79.911A - Unspecified injury of right hip, initial encounter Condition: Stable Record reviewed to determine appropriate education?: Yes Comments: Xrays of right hip and knee were negative for acute pathology. Please return anytime for new or worse symptoms. Continue PT and pain management as previously ordered. Forms: PCP List
--- NOTE | 2023-08-10 18:25 | XRAY Report ---
PROCEDURE: Hip w/Pelvis 2-3V RT INDICATIONS: hip inj TECHNIQUE: 3 views of the hip were acquired. COMPARISON: None. FINDINGS: Bones: Fracture deformity of the right hip status post ORIF. The hardware appears intact.. No suspi cious bony lesions. Diffusely decreased osseous position. Degenerative changes of the visualized lowe r lumbar spine and pubic symphysis. Soft tissues: No suspicious soft tissue calcifications or masses. IMPRESSION: Chronic appearing fracture deformity of the right hip status post ORIF. Hardware appears intact. Andry mmend correlation with prior imaging. Reviewed by: Guerrero Musa MD on 08/10/2023 6:24 PM PDT Approved by: Guerrero Musa MD on 08/10/2023 6:24 PM PDT Station ID: [id number]
--- NOTE | 2023-08-10 18:26 | XRAY Report ---
PROCEDURE: Knee 3V RT INDICATIONS: knee inj TECHNIQUE: 3 views of the knee(s) were acquired. COMPARISON: None. FINDINGS: Bones: Evaluation is limited secondary to patient positioning. No fractures or dislocations. No clayton picious bony lesions. Soft tissues: No knee joint effusion. No suspicious soft tissue calcifications or masses. IMPRESSION: Limited evaluation secondary to patient positioning. No definite acute fractures seen. Reviewed by: Guerrero Musa MD on 08/10/2023 6:25 PM PDT Approved by: Guerrero Musa MD on 08/10/2023 6:25 PM PDT Station ID: [id number]
[2023-08-10 19:29] VITALS: BP 115/68; O2SAT 95
== END 2023-08-10 19:55 | disposition home or self-care (01) ==
LOC: EDUNIT# → ED 17:36
DX: S79.911A Unspecified injury of right hip, initial encounter (principal); S89.91XA Unspecified injury of right lower leg, initial encounter; W19.XXXA Unspecified fall, initial encounter; F03.90 Unspecified dementia, unspecified severity, without behavioral disturbance, psychotic disturbance, mood disturbance, and anxiety
CPT/HCPCS: 99283; 99284

== ENCOUNTER 2023-08-10 20:00 | Outpatient (CLI) | payer MEDICARE, OTHER | END 2023-08-10 23:59 | LOC: EMS 20:00 | PROVIDERS: ATTEND Emergency Medicine | DX: M25.551 Pain in right hip (principal); S72.001D Fracture of unspecified part of neck of right femur, subsequent encounter for closed fracture with routine healing; X58.XXXD Exposure to other specified factors, subsequent encounter; F03.90 Unspecified dementia, unspecified severity, without behavioral disturbance, psychotic disturbance, mood disturbance, and anxiety | CPT/HCPCS: A0425; A0428 ==

== ENCOUNTER 2023-10-14 22:56 | Outpatient (CLI) | payer MEDICARE, OTHER | END 2023-10-14 23:59 | disposition critical access hospital (66) | LOC: EMS 22:56 | DX: T83.031A Leakage of indwelling urethral catheter, initial encounter (principal) | CPT/HCPCS: A0425; A0429 ==

== ENCOUNTER 2023-10-14 23:14 | Emergency (ER) | payer MEDICARE, OTHER ==
--- NOTE | 2023-10-14 23:23 | ED Physician Documentation ---
History of Present Illness - Stated complaint Stated Complaint: CATH ISSUE - Additonal information Additional information: 87-year-old female with chronic indwelling catheter comes from care facility with concern for catheter leaking. Patient reports otherwise feels "fine". Den ies fever, chills, flank pain, abdominal pain, nausea, vomiting, diarrhea, constipation. Review of Systems Constitutional: denies: Fever Eyes: denies: Loss of vision Ears: denies: Loss of hearing Nose: denies: Rhinorrhea / runny nose Throat: denies: Dental pain / toothache Cardiac: denies: Chest pain / pressure Respiratory: denies: Dyspnea GI: denies: Abdominal Pain : denies: Dysuria Skin: denies: Rash Musculoskeletal: denies: Neck pain PD PAST MEDICAL HISTORY - Past Medical History Neuro: Dementia - Past Surgical History Past Surgical History: Yes General: Appendectomy Ortho: Hip replacement - Allergies Allergies/Adverse Reactions: Allergies Allergy/AdvReac Type Severity Reaction Status Date / Time Penicillins Allergy Unknown Verified 10/14/23 23:17 - Social History Does the pt smoke?: No Smoking Status: Never smoker Does the pt drink ETOH?: No Does the pt have substance abuse?: No - Immunizations Immunizations are current?: Yes - POLST Patient has POLST: Yes PD ED PE NORMAL - General General: Alert and oriented X 3 - HEENT HEENT: Atraumatic - Neck Neck: Supple, no meningeal sign - Cardiac Cardiac: RRR - Respiratory Respiratory: No respiratory distress - Abdomen Abdomen: Normal bowel sounds - Female Female : Deferred - Rectal Rectal: Deferred - Back Back: No CVA TTP - Derm Derm: Normal color Results - Vitals Vitals: Oxygen O2 Source Room air PD Medical Decision Making - ED course Complexity details: considered differential ED course: 87-year-old female with chronic indwelling catheter comes from care facility at 1120 at night for catheter leaking. No appreciable leaking of the catheter here in the emergency department. It is replaced by nursing staff. Patient denies other symptoms. Abdominal exam is benign. Clear aeration in all lung mayes, normal cardiac exam. Will discharge back to care facility. No indications for further testing or imaging at this time. Departure - Departure Disposition: 01 Home, Self Care Clinical Impression: Tavera catheter problem Qualifiers: Encounter type: initial encounter Qualified Code(s): T83.9XXA - Unspecified c omplication of genitourinary prosthetic device, implant and graft, initial encounter Comments: Thank you for allowing us to care for you today at [facility]. Your catheter was replaced in the emergency department. If you have further issues please follow-up with your primary care doctor or return.
[2023-10-14 23:27] VITALS: O2SAT 97
[2023-10-15 00:38] VITALS: BP 138/72
== END 2023-10-15 00:05 | disposition home or self-care (01) ==
LOC: EDUNIT# → ED 23:14
DX: T83.091A Other mechanical complication of indwelling urethral catheter, initial encounter (principal); Y82.8 Other medical devices associated with adverse incidents
CPT/HCPCS: 51702; 99282; 99283

== ENCOUNTER 2023-10-15 | Outpatient (CLI) | payer MEDICARE, OTHER | END 2023-10-15 00:01 | disposition home or self-care (01) | LOC: EMS | PROVIDERS: ATTEND Student in an Organized Health Care Education/Training Program | DX: F03.90 Unspecified dementia, unspecified severity, without behavioral disturbance, psychotic disturbance, mood disturbance, and anxiety (principal); R41.0 Disorientation, unspecified; Z74.01 Bed confinement status; Z96.0 Presence of urogenital implants | CPT/HCPCS: A0425; A0428 ==